=== PATIENT | female | born 1980 | race Caucasian/White ===

== ENCOUNTER 2016-08-22 09:59 | Emergency (ER) | payer OTHER ==
[~2016-08-22] VITALS: Ht 157.5 cm; Wt 74.8 kg
[~2016-08-22 09:59] MED LIST: ACET-704 PO; ASPI1TAB2 PO; AZIT250T PO; CLIN-44 PO; FLUT9.9S NS; HYDR-971 PO; OXYC-323 PO; PRED20TA PO; PROAIR HFA8.5 GM INH; SULF1TAB24 PO; VENL150C PO; VENL75CA PO
[2016-08-22 10:49] VITALS: BP 123/75
[2016-08-22] MEDS ORDERED: NAPR250T2 PO (10:59)
[2016-08-22] MEDS ORDERED: FLUT9.9S NS (10:59)
[2016-08-22] MEDS ORDERED: NAPROXEN 250 MG TABLET PO ONE (11:00)
--- NOTE | 2016-08-22 11:18 | ED.ADGEN ---
Past Medical History Past Medical History: Depression, Other Additional Past Medical Histor: COLON INFECTION, HEADACHES Past Surgical History: , Other Additional Past Surgical Histo: D&C 2005 Alcohol Use: Occasionally Drug Use: None Adult General Chief Complaint Chief Complaint: OTHER COMPLAINTS HPI HPI Patient is a 36 year old woman, history of depression, seasonal allergies, who presents to the emergency department with a complaint of nasal congestion and headache. Patient states that about a week ago she began experiencing cough, with some sore throat, and states that although cough and sore throat have resolved, she now has nasal congestion with rhinorrhea, and mild headache. She states that the symptoms did improve after using DayQuil. Headache described as achy, located across the front of her head. Sneezing, clear rhinorrhea. She denies any fevers or chills, any nausea or vomiting, any weakness in this or tingling, any vision changes, any injuries. She states that she does not use nasal sprays usually because she does not like them. Has not used any acetaminophen or ibuprofen or other antipyretics. Is afebrile emergency department, and well-appearing. No recent travel or surgery, positive for sick contacts with family members. Review of Systems Review of Systems Constitutional: Denies fever or chills. [] Eyes: Denies change in visual acuity. [] HENT: Sore throat, now resolved, nasal congestion with clear rhinorrhea. Respiratory: Cough, now resolved, no shortness of breath. Cardiovascular: Denies chest pain or edema. [] GI: Denies abdominal pain, nausea, vomiting, bloody stools or diarrhea. [] : Denies dysuria. [] Musculoskeletal: Denies back pain or joint pain. [] Integument: Denies rash. [] Neurologic: Denies headache, focal weakness or sensory changes. [] Endocrine: Denies polyuria or polydipsia. [] Lymphatic: Denies swollen glands. [] Psychiatric: Denies depression or anxiety. [] Current Medications Current Medications Current Medications Medications (Trade) Dose Ordered Sig/Kyler Start Time Stop Time Status Last Admin Dose Admin Naproxen (Naprosyn) 250 mg 1X ONCE 08/22/16 11:00 08/22/16 11:01 DC Allergies Allergies Allergies Coded Allergies Type Severity Reaction Last Updated Verified Penicillins Allergy Intermediate 02/22/15 Yes hydrocodone Allergy Intermediate 07/30/15 No amoxicillin Adverse Reaction Mild NAUSEA 02/22/15 Yes clavulanic acid Adverse Reaction Mild NAUSEA 02/22/15 Yes levofloxacin Adverse Reaction Mild NAUSEA 02/22/15 Yes Physical Exam Physical Exam Constitutional: Well developed, well nourished, no acute distress, non-toxic appearance. [] HENT: Normocephalic, atraumatic, bilateral external ears normal, oropharynx moist, no oral exudates, mild turbinate swelling bilaterally with clear rhinorrhea. Eyes: PERRLA, EOMI, conjunctiva normal, no discharge. [] Neck: Normal range of motion, no tenderness, supple, no stridor. [] Cardiovascular:Heart rate regular rhythm, no murmur, S1, S2, rubs or gallops. [] Lungs & Thorax: Bilateral breath sounds clear to auscultation, no wheezing, rhonchi, rales. No chest tenderness or crepitus. [] Abdomen: Bowel sounds normal, soft, no tenderness, no masses, no pulsatile masses. [] Skin: Warm, dry, no erythema, no rash. [] Back: No tenderness, no CVA tenderness. [] Extremities: No tenderness, no cyanosis, no clubbing, ROM intact, no edema. Negative Homans sign. [] Neurologic: Alert and oriented X 3, normal motor function, normal sensory function, no focal deficits noted. [] Psychologic: Affect normal, judgement normal, mood normal. [] Current Patient Data Vital Signs Vital Signs Date Time Temp Pulse Resp B/P Pulse Ox O2 Delivery O2 Flow Rate FiO2 08/22/16 10:49 98.3 91 18 99 Room Air 98.3 EKG EKG Not indicated. [] Radiology/Procedures Radiology/Procedures [] Impressions: Not indicated. Course & Med Decision Making Course & Med Decision Making Pertinent Labs and Imaging studies reviewed. (See chart for details) Patient well-appearing, with vital signs within normal limits, no evidence of lower airspace involvement. Discussed with patient that she is no evidence of a purulent infection, and I believe this is viral based on the history and examination, therefore no indication for antibiotics. Patient voiced understanding, we did discuss use of Flonase, patient does not like Abhijit- Synephrine, but is willing to try Flonase, along with acetaminophen, ibuprofen, rest and fluids. We did discuss concerning symptoms that prompt return to the emergency department. Patient was discharged home in stable condition with prescription for Flonase, naproxen, to follow-up as stated, and to return to the ED for concerning symptoms as discussed. Dragon Disclaimer Dragon Disclaimer This electronic medical record was generated, in whole or in part, using a voice recognition dictation system. Departure Impression: Primary Impression: Upper respiratory infection Disposition: HOME, SELF-CARE Condition: STABLE Scripts Fluticasone Propionate (Flonase Allergy Relief)9.9 Ml [place].susp2 Sprays NS DAILY PRN CONGESTION #1 BOTTLE Prov:ANDRIA MCGUIRE DO 08/22/16 Naproxen 250 Mg [id number] Mg PO BID PRN CONGESTION #10 Prov:ANDRIA MCGUIRE DO 08/22/16 Problem Qualifiers Primary Impression: Upper respiratory infection URI type: unspecified viral URI Qualified Code: J06.9 - Acute upper respiratory infection, unspecified ANDRIA MCGUIRE DO Aug 22, 2016 11:18
== END 2016-08-22 11:20 | disposition home or self-care (01) ==
LOC: ER 09:59
DX: J06.9 Acute upper respiratory infection, unspecified (principal); F32.9 Major depressive disorder, single episode, unspecified; Z88.0 Allergy status to penicillin; Z88.5 Allergy status to narcotic agent; Z88.1 Allergy status to other antibiotic agents
CPT/HCPCS: 99283

== ENCOUNTER 2020-06-02 07:29 | Emergency (ER) | payer MEDICAID, OTHER ==
[~2020-06-02] VITALS: Ht 157.5 cm; Wt 77.7 kg
[~2020-06-02 07:29] MED LIST changes: +ALBU2.5V8 INH; +ASPI-621 PO; -ASPI1TAB2 PO; -CLIN-44 PO; +CLIN150C14 PO; +HYDR-3164 PO; -HYDR-971 PO; +NAPR250T6 PO; -OXYC-323 PO; +OXYC1TAB15 PO; -PROAIR HFA8.5 GM INH
--- NOTE | 2020-06-02 08:00 | PHYS DOC ---
Past Medical History Past Medical History: Depression, Other Additional Past Medical Histor: COLON INFECTION, HEADACHES Past Surgical History: , Other Additional Past Surgical Histo: D&C 2005 Smoking Status: Never Smoker Alcohol Use: None Drug Use: None General Adult EDM: Chief Complaint: GENERALIZED BODY ACHES HPI: HPI: Patient is a 40 year old female who presented to ER for evaluation of congestion, body ache, flulike symptom for a few days. Patient says she was exposed to her friends who tested positive for COVID-19. Patient denies any cough, no headache, no nausea vomiting, no abdominal pain patient denies any sore throat, no fever. Review of Systems: Review of Systems: Constitutional: Denies fever or chills. [] Eyes: Denies change in visual acuity. [] HENT: Positive for nasal congestion, no sore throat . Respiratory: Denies cough or shortness of breath. [] Cardiovascular: Denies chest pain or edema. [] GI: Denies abdominal pain, nausea, vomiting, bloody stools or diarrhea. [] : Denies dysuria. [] Musculoskeletal: Denies back pain or joint pain. [] Integument: Denies rash. [] Neurologic: Denies headache, focal weakness or sensory changes. [] Endocrine: Denies polyuria or polydipsia. [] Lymphatic: Denies swollen glands. [] Psychiatric: Denies depression or anxiety. [] Heart Score: Risk Factors: Risk Factors: DM, Current or recent (<one month) smoker, HTN, HLP, family history of CAD, obesity. Risk Scores: Score 0 - 3: 2.5% MACE over next 6 weeks - Discharge Home Score 4 - 6: 20.3% MACE over next 6 weeks - Admit for Clinical Observation Score 7 - 10: 72.7% MACE over next 6 weeks - Early Invasive Strategies Allergies: Allergies: Allergies Coded Allergies Type Severity Reaction Last Updated Verified Penicillins Allergy Unknown 06/02/20 Yes hydrocodone Adverse Reaction Intermediate 06/02/20 No amoxicillin Adverse Reaction Mild NAUSEA 02/22/15 Yes clavulanic acid Adverse Reaction Mild NAUSEA 02/22/15 Yes levofloxacin Adverse Reaction Mild NAUSEA 02/22/15 Yes Physical Exam: PE: Constitutional: Well developed, well nourished, no acute distress, non-toxic appearance. [] HENT: Normocephalic, atraumatic, bilateral external ears normal, oropharynx moist, no oral exudates, nose normal. [] Eyes: PERRLA, EOMI, conjunctiva normal, no discharge. [] Neck: Normal range of motion, no tenderness, supple, no stridor. [] Cardiovascular:Heart rate regular rhythm, no murmur [] Lungs & Thorax: Bilateral breath sounds clear to auscultation [] Abdomen: Bowel sounds normal, soft, no tenderness, no masses, no pulsatile chuy s. [] Skin: Warm, dry, no erythema, no rash. [] Back: No tenderness, no CVA tenderness. [] Extremities: No tenderness, no cyanosis, no clubbing, ROM intact, no edema. [] Neurologic: Alert and oriented X 3, normal motor function, normal sensory function, no focal deficits noted. [] Psychologic: Affect normal, judgement normal, mood normal. [] Current Patient Data: Vital Signs: Vital Signs Date Time Temp Pulse Resp B/P (MAP) Pulse Ox O2 Delivery O2 Flow Rate FiO2 06/02/20 07:43 98.8 78 18 119/86 (97) 99 Room Air 98.8 EKG: EKG: [] Radiology/Procedures: Radiology/Procedures: [] Course & Med Decision Making: Course & Med Decision Making Pertinent Labs and Imaging studies reviewed. (See chart for details) Patient is stable in no acute distress. Dragon Disclaimer: Dragon Disclaimer: This electronic medical record was generated, in whole or in part, using a voice recognition dictation system. Departure Departure Impression: Primary Impression: Suspected 2019 novel coronavirus infection Disposition: 01 ME HOME SELF CARE/HOMELESS Condition: STABLE Referrals: Kenzie JADE MD (PCP) follow up with your doctor as needed Patient Instructions: Viral Syndrome Additional Instructions: You have been tested for or diagnosed with COVID-19. It is an infection caused by a new type of coronavirus. COVID-19 will cause cold-like or mild flu symptoms in most. It can cause more severe symptoms like problems breathing in some. There is no treatment for COVID-19. The body will clear the infection over time. Self-care will help to ease discomfort. Steps to Take: Self-Care Rest as needed. Healthy habits may help you feel better. Steps include: Choose healthy foods including fruits and vegetables. Drink water throughout the day. Get plenty of sleep each night. If you smoke, try to quit. It may ease breathing. Avoid alcohol. Keep Others Healthy The virus can spread to others. Droplets are released every time you sneeze or cough. The droplets can get into the mouth, nose, or eyes of people near you and lead to infection. To lower the chances of spreading COVID-19 to others: Stay at home until your doctor has said it is safe to leave. If you tested positive this will mean staying isolated until both of the following are true: At least 7 days have passed since the start of illness. You are free of fever for at least 72 hours without the use of medicine. During this time: - Avoid public areas, events, or transportation. Do not return to work or olaf ool until your doctor has said it is safe to do so. - Call ahead if you need to go to a medical center. Let them know you may have COVID-19. It will help them guide you where to go. They may also ask you to wear a facemask when you come to the office. - If you call for emergency medical services, let them know you may have COVID- 19. While at home: - Try to avoid close contact with others. Stay about 6 feet away. - If possible, spend most of your time in a separate room from others. - Use a face mask if you will be in close contact with others such as sharing a room or vehicle. - Have someone wipe down common surfaces in the home. Use household [employer] every day on areas like doorknobs, counters, or sinks. - Cough or sneeze into a tissue. Throw the tissue away right after use. If a tissue is not available, cough or sneeze into your elbow. - Wash your hands often. Wash them after sneezing or coughing. Use soap and water and wash for at least 20 seconds. Alcohol based hand engine cleaner can be used if soap and water is not available. - Do not prepare food for others. Avoid sharing personal items like forks, spoons, or toothbrushes. - Avoid close contact with pets while you are sick. There is no evidence of the virus passing to pets. This is a safety step until more is known about this virus. Isolation can be frustrating. Social interaction can help. Keep in touch with friends and family through phone and tech options. You can still interact with others in your home, just keep a safe distance of about 6 feet. Follow-up: Your doctors office will check in with you to see if there are any changes in your health. You may be asked to keep track of symptoms to share with them. They will also let you know when you are clear to be in public again. Problems to Look Out For: Contact your doctor if your recovery is not going as you expect. Get emergency care if you have problems such as: - Trouble breathing - Nonstop chest pain or pressure - Changes in awareness, confusion, or problems waking - Lips or face have bluish color - Worsening of symptoms If you think you have an emergency, call for emergency medical services right away. As taken from [facility] [place] [facility] Pace DO Jun 02, 2020 08:00
[2020-06-02 08:38] VITALS: BP 126/85
[2020-06-02 08:45] LABS: INFLUENZA A PATIENT NEGATIVE (NEGATIVE); INFLUENZA B PATIENT NEGATIVE (NEGATIVE)
--- NOTE | 2020-06-04 13:17 | NUR ---
IP: Attempted to adalberto COVID results. No answer. Left a voicemail to return the call.
--- NOTE | 2020-06-04 14:37 | NUR ---
IP: Pt returned the call. Informed her of the negative COVID test. Pt verbalized understanding.
== END 2020-06-02 08:38 | disposition home or self-care (01) ==
LOC: ER 07:29
DX: R09.81 Nasal congestion (principal); M79.10 Myalgia, unspecified site; Z20.828 Contact with and (suspected) exposure to other viral communicable diseases; Z88.0 Allergy status to penicillin; Z88.1 Allergy status to other antibiotic agents; Z88.5 Allergy status to narcotic agent; Z88.8 Allergy status to other drugs, medicaments and biological substances
CPT/HCPCS: 87804; 99283; U0003; C9803

== ENCOUNTER 2021-05-18 14:49 | Emergency (ER) | payer SELFPAY ==
[~2021-05-18] VITALS: Ht 157.5 cm; Wt 64.5 kg
[~2021-05-18 14:49] MED LIST changes: -CLIN150C14 PO; +CLIN150C16 PO; +NAPR-699 PO; -NAPR250T6 PO
--- NOTE | 2021-05-18 15:42 | PHYS DOC ---
Past Medical History Past Medical History: Depression, Other Additional Past Medical Histor: COLON INFECTION, HEADACHES Past Surgical History: , Other Additional Past Surgical Histo: D&C 2005 Smoking Status: Never Smoker Alcohol Use: None Drug Use: None General Adult EDM: Chief Complaint: FLU SYMPTOM HPI: HPI: Patient is a 40 year old female who presents with 2 weeks of nasal congestion, cough, chest discomfort. Chest discomfort is described as a heaviness. Substernal. Does not radiate. Is constant. Not worse with deep inspiration or with exertion. Complains of fever/chills, but has not measured her temperature. Complains of aching in her muscles and joints. Not vaccinated for influenza or Covid. Has had household contacts who tested positive for Covid in the past month. She has not been tested during this course of illness. No lower extremity edema/pain/redness, recent surgeries, recent immobilization, or history of DVT/PE. No personal history of HTN, HLD, DM. She is a smoker. Review of Systems: Review of Systems: Constitutional: Reports fever and chills Eyes: Denies change in visual acuity. [] HENT: Reports nasal congestion and sore throat Respiratory: Reports cough. Denies shortness of breath [] Cardiovascular: Reports chest pain. Denies edema. [] GI: Denies abdominal pain, nausea, vomiting, bloody stools or diarrhea. [] : Denies dysuria. [] Musculoskeletal: Reports diffuse myalgias and arthralgias Integument: Denies rash. [] Neurologic: Denies headache, focal weakness or sensory changes. [] Endocrine: Denies polyuria or polydipsia. [] Lymphatic: Denies swollen glands. [] Psychiatric: Denies depression or anxiety. [] Heart Score: C/O Chest Pain: Yes HEART Score for Chest Pain: HEART Score for Chest Pain Response (Comments) Value History Slighlty/Non-Suspicious 0 ECG Normal 0 Age < 45 0 Risk Factors No Risk Factors 0 Total 0 Risk Factors: Risk Factors: None Risk Scores: Score 0 - 3: 2.5% MACE over next 6 weeks - Discharge Home Allergies: Allergies: Allergies Coded Allergies Type Severity Reaction Last Updated Verified Penicillins Allergy Unknown 06/02/20 Yes hydrocodone Adverse Reaction Intermediate 06/02/20 No amoxicillin Adverse Reaction Mild NAUSEA 02/22/15 Yes clavulanic acid Adverse Reaction Mild NAUSEA 02/22/15 Yes levofloxacin Adverse Reaction Mild NAUSEA 02/22/15 Yes Physical Exam: PE: Constitutional: Well developed, well nourished, no acute distress, non-toxic appearance. [] HENT: Normocephalic, atraumatic, bilateral external ears normal, oropharynx moist, no oral exudates, nose normal. [] Eyes: PERRLA, EOMI, conjunctiva normal, no discharge. [] Neck: Normal range of motion, no tenderness, supple, no stridor. [] Cardiovascular:Heart rate regular rhythm, no murmur [] Lungs & Thorax: Bilateral breath sounds clear to auscultation [] Abdomen: Bowel sounds normal, soft, no tenderness, no masses, no pulsatile masses. [] Skin: Warm, dry, no erythema, no rash. [] Back: No tenderness, no CVA tenderness. [] Extremities: No tenderness, no cyanosis, no clubbing, ROM intact, no edema. [] Neurologic: Alert and oriented X 3, normal motor function, normal sensory function, no focal deficits noted. [] Psychologic: Affect normal, judgement normal, mood normal. [] EKG: EKG: Sinus rhythm. Normal rate. 83 bpm. Normal axis. Normal intervals. No Q waves, T wave inversion, ST elevation, or ST depression. Interpretation: Normal EKG [] Radiology/Procedures: Radiology/Procedures: [] Impression: [facility] [address] [place] [address] IMAGING REPORT Signed PATIENT: MARIELA MITCHELL ACCOUNT: [id number] : 1980 LOCATION: ER AGE: 40 SEX: F EXAM STATUS: REG ER ORD. PHYSICIAN: DUKE SANDERS MD REASON: chest pain, cough, fever/chills PROCEDURE: CHEST AP ONLY EXAM: CHEST ONE VIEW. HISTORY: Chest pain, cough, fever. COMPARISON: 05/31/2016. FINDINGS: A frontal view of the chest is obtained. There are no confluent infiltrates. There is no pneumothorax or pleural effusion . The heart is not enlarged. IMPRESSION: 1. No confluent infiltrates. Electronically signed by: Dillon Mendez MD (05/18/2021 4:35 PM) [facility] DICTATED and SIGNED BY: DUKE MENDEZ MD DATE: 05/18/21 [id number] 0 Course & Med Decision Making: Course & Med Decision Making Pertinent Labs and Imaging studies reviewed. (See chart for details) Patient 40-year-old female who presents with cough, nasal congestion, subjective fever/chills, and chest heaviness in the setting of known Covid positive contacts. On arrival is afebrile, hemodynamically stable, satting 100% on room air. Well- appearing on examination. We will check Covid swabs. Given timeline of illness do not feel influenza testing would be helpful or guide treatment. With chest discomfort will check chest x-ray, EKG, single troponin. Given time line single troponin should be sufficient to rule out ACS and myocarditis. PERC negative. Does not require further evaluation for PE. 0341 EKG normal. 1556 Troponin negative. Chest x-ray clear. Labs largely unremarkable, mild hypokalemia 3.4, mild lymphopenia, mild thrombocytosis. In keeping with viral process/covid Rapid Covid negative. PCR Covid pending. Safe for discharge at this time Dragon Disclaimer: [employer] Disclaimer: This electronic medical record was generated, in whole or in part, using a voice recognition dictation system. Departure Departure Impression: Primary Impression: URI (upper respiratory infection) Additional Impression: Chest heaviness Disposition: HOME / SELF CARE / HOMELESS Condition: STABLE Referrals: Kenzie JADE MD (PCP) Schedule appointment with your PCP if symptoms persist Additional Instructions: Your rapid Covid test was negative. The rapid test can have false negative testing. The PCR Covid test is still pending. This will result by tomorrow. Please self isolate until you know the results of the PCR test. Your chest x-ray was normal. Your potassium was slightly low, although not dangerously low, please eat potassium rich foods such as banana. Your vital signs and oxygen levels were normal. Please follow-up with your primary care doctor if your symptoms persist. If you have worsening shortness of breath please return to the emergency department for reevaluation. For pain/fever/muscle aches/joint aches tylenol and ibuprofen are best used on a schedule. Please alternate between the two. -Tylenol 1000 mg every 6 hours (do not exceed 4000 mg in one day) -Ibuprofen 400 mg every 6 hours. Take with food. Do not take for more than 1 week. DUKE SANDERS MD May 18, 2021 15:41
[2021-05-18 16:09] LABS: BASO % 0 % (0-3); EOS # 0.2 x10^3/uL (0.0-0.7); EOS % 4 % (0-3); HEMATOCRIT 32.1 % (36.0-47.0); HEMOGLOBIN 10.2 g/dL (12.0-15.5); LYMPH % 19 % (24-48); MEAN CORPUSCULAR HEMOGLOBIN 25 pg (25-35); MEAN CORPUSCULAR HGB CONC 32 g/dL (31-37); MEAN CORPUSCULAR VOLUME 78 fL (79-100); MONO # 0.5 x10^3/uL (0.0-1.1); MONO % 9 % (0-9); NEUT # 3.7 x10^3/uL (1.8-7.7); NEUT % 68 % (31-73); PLATELET COUNT 281 x10^3/uL (140-400); RED BLOOD COUNT 4.15 x10^6/uL (3.50-5.40); RED CELL DISTRIBUTION WIDTH 17.4 % (11.5-14.5); WHITE BLOOD COUNT 5.4 x10^3/uL (4.0-11.0)
[2021-05-18 16:36] LABS: CALCIUM 8.2 mg/dL (8.5-10.1); CREATININE 0.7 mg/dL (0.6-1.0); GFR 92.7; POTASSIUM 3.4 mmol/L (3.5-5.1)
--- NOTE | 2021-05-18 16:37 | RAD ---
EXAM: CHEST ONE VIEW. HISTORY: Chest pain, cough, fever. COMPARISON: 05/31/2016. FINDINGS: A frontal view of the chest is obtained. There are no confluent infiltrates. There is no pneumothorax or pleural effusion. The heart is not en larged. IMPRESSION: 1. No confluent infiltrates. Electronically signed by: Dillon Mendez MD (05/18/2021 4:35 PM) [facility]
--- NOTE | 2021-05-18 16:43 | EKG ---
[facility] [address] [place] [address] Test Date: 2021-05-18 Test Time: 15:46:05 Pat Name: MARIELA MITCHELL Department: Room: Gender: F Skip Tracer: : 1980 Requested By: DUKE SANDERS Order Number: [id number] Reading MD: Caleb Quarles Measurements Intervals [place] Rate: 83 P: 58 OR: 140 QRS: 26 QRSD: 78 T: 59 QT: 366 QTc: 431 Interpretive Statements SINUS RHYTHM NORMAL ECG RI6.02 No previous ECG available for comparison Electronically Signed On 05-20-2021 7:21:47 DIRECTOR OF WOMEN'S SERVICES by Caleb Quarles
[2021-05-18 17:29] VITALS: BP 123/85
--- NOTE | 2021-05-21 09:45 | NUR ---
IP: Attempted to contact pt concerning covid results. No answer, left a voicemail to return the call.
--- NOTE | 2021-05-23 11:02 | NUR ---
IP: Attempted a second time to contact pt concerning covid results. No answer, left a second voicemail to return the call.
== END 2021-05-18 17:29 | disposition home or self-care (01) ==
LOC: ER 14:49
DX: J06.9 Acute upper respiratory infection, unspecified (principal); Z20.822 Contact with and (suspected) exposure to COVID-19; R07.89 Other chest pain; Z88.0 Allergy status to penicillin; Z88.1 Allergy status to other antibiotic agents; Z88.5 Allergy status to narcotic agent; Z88.8 Allergy status to other drugs, medicaments and biological substances
CPT/HCPCS: 36415; 71045; 80048; 84484; 85025; 87426; 93005; 99285; U0003; U0005